=== PATIENT | male | born 1945 | race Caucasian/White ===

== ENCOUNTER → 2018-11-14 | Outpatient (CLI) | payer OTHER ==
[~2018-11-14] MED LIST: ALLO300T PO; ATOR10TA9 PO; EMPA25TA PO; LOSA100T14 PO; METF500T17 PO; TAMS-11 PO
[2018-11-14 10:51] LABS: MICROSCOPIC NOT IND
[2018-11-14 10:59] LABS: CULTURE INDICATED? NO
== END | disposition home or self-care (01) ==
LOC: STAR 09:27
PROVIDERS: ATTEND Orthopaedic Surgery
DX: Z01.818 Encounter for other preprocedural examination (principal); M17.12 Unilateral primary osteoarthritis, left knee; I45.10 Unspecified right bundle-branch block; R94.31 Abnormal electrocardiogram [ECG] [EKG]
CPT/HCPCS: 81003; 87081; 87147; 93005

== ENCOUNTER 2018-11-26 06:43 | Day surgery (SDC) | payer OTHER ==
[~2018-11-26] VITALS: Ht 170.2 cm; Wt 91.2 kg
[2018-11-26] MEDS ORDERED: VANCOMYCIN PER PHARMACY MC SCH (07:46)
[2018-11-26] MEDS ORDERED: LACTATED RINGERS 1,000 ML IV SCH (07:46)
[2018-11-26 07:51] VITALS: BP 150/81
[2018-11-26] MEDS ORDERED: VANCOMYCIN 1,800 MG in SODIUM CHLORIDE 0.9% 250 ML IV ONE (08:00)
[2018-11-26] MEDS ORDERED: MIDAZOLAM 1 MG/ML, 2ML ONE (08:13)
[2018-11-26] MEDS ORDERED: SUCCINYLCHOLINE 20 MG/ML, 10ML ONE (08:14)
[2018-11-26] MEDS ORDERED: EPHEDRINE 50 MG/ML, 1ML ONE (08:14)
[2018-11-26] MEDS ORDERED: PROPOFOL 10 MG/ML, 20ML ONE ×2 (08:14)
[2018-11-26] MEDS ORDERED: CEFAZOLIN 1,000 MG ONE ×2 (08:14)
[2018-11-26] MEDS ORDERED: FENTANYL PF 250 MCG/5ML ONE (08:14)
[2018-11-26] MEDS ORDERED: PHENYLEPHRINE 10 MG/ML ONE (08:15)
[2018-11-26] MEDS ORDERED: ROPIvacaine/PF 0.5%, 30 ML ONE (08:23)
[2018-11-26] MEDS ORDERED: GABAPENTIN 300 MG CAPSULE PO ONE (08:30)
[2018-11-26] MEDS ORDERED: OXYcodone IR 5MG TABLET PO ONE (08:30)
[2018-11-26] MEDS ORDERED: ACETAMINOPHEN 500 MG TABLET PO ONE (08:30)
[2018-11-26] MEDS ORDERED: TAMSULOSIN 0.4 MG CAP.ER.24H PO ONE (08:30)
[2018-11-26] MEDS ORDERED: KETOROLAC 60 MG/2 ML ONE (09:18)
[2018-11-26] MEDS ORDERED: TRANEXAMIC ACID 100 MG/ML, 10ML ONE ×2 (09:18)
[2018-11-26] MEDS ORDERED: VANCOMYCIN 1,000 MG ONE (09:19)
[2018-11-26] MEDS ORDERED: SODIUM CHLORIDE 0.9% 50 ML ONE (09:19)
[2018-11-26] MEDS ORDERED: EPINEPHRINE 1 MG/ML, 1ML ONE (09:19)
[2018-11-26] MEDS ORDERED: ROPIvacaine/PF 0.2%, 20 ML ONE (09:19)
[2018-11-26] MEDS ORDERED: GLYCOPYRROLATE 0.4 MG/2 ML, 2ML ONE (09:45)
[2018-11-26] MEDS ORDERED: MORPHINE SULFATE 4 MG/ML, 1ML ONE (10:40)
[2018-11-26] MEDS ORDERED: FENTANYL PF 100 MCG/2ML ONE (11:51)
[2018-11-26] MEDS ORDERED: OXYcodone 5 MG/5 ML ORAL.SOL UDC ONE (11:52)
[2018-11-26] MEDS ORDERED: MEPERIDINE/PF 25MG/0.5ML IVPush PRN (12:30)
[2018-11-26] MEDS ORDERED: FENTANYL PF 100 MCG/2ML IV PRN (12:30)
[2018-11-26] MEDS ORDERED: PROMETHAZINE 25 MG/ML, 1ML IV PRN (12:30)
[2018-11-26] MEDS ORDERED: OXYcodone 5 MG/5 ML ORAL.SOL UDC PO PRN (12:30)
[2018-11-26] MEDS ORDERED: hydrALAzine 20 MG/ML, 1ML IV PRN (12:30)
[2018-11-26] MEDS ORDERED: HYDROmorphone 2 MG/ML, 1ML IVPush PRN (12:30)
[2018-11-26] MEDS ORDERED: LABETALOL 5MG/ML, 20ML IV PRN (12:30)
[2018-11-26] MEDS ORDERED: TRANEXAMIC ACID 1,500 MG in SODIUM CHLORIDE 0.9% 100 ML IV ONE (12:30)
[2018-11-26] MEDS ORDERED: MIDAZOLAM 1 MG/ML, 2ML IV PRN (12:30)
[2018-11-26 13:15] VITALS: BP 149/80
[2018-11-26] MEDS ORDERED: LORazepam 2 MG/ML, 1ML IV PRN (14:00)
[2018-11-26] MEDS ORDERED: ONDANSETRON ODT 4 MG PO PRN ×2 (14:00→18:00)
[2018-11-26] MEDS ORDERED: ACETAMINOPHEN 325 MG TABLET PO PRN (14:00)
[2018-11-26] MEDS ORDERED: SENNA/DOCUSATE TABLET PO PRN (14:00)
[2018-11-26] MEDS ORDERED: DIPHENHYDRAMINE 25 MG CAPSULE PO PRN (14:00)
[2018-11-26] MEDS ORDERED: ZOLPIDEM 5MG TABLET PO PRN (14:00)
[2018-11-26] MEDS ORDERED: HYDROcodone/APAP 5/325 TABLET PO PRN (14:00)
[2018-11-26] MEDS ORDERED: ONDANSETRON 2MG/ML, 2ML IVPush PRN ×2 (14:00→18:00)
[2018-11-26] MEDS ORDERED: ALUMINUM/MAG/SIMETHICONE 30 ML UDC PO PRN (14:00)
[2018-11-26] MEDS ORDERED: BISACODYL 10 MG SUPP PR PRN (14:00)
[2018-11-26] MEDS ORDERED: PROMETHAZINE 25 MG SUPP PR PRN (14:00)
[2018-11-26] MEDS ORDERED: DIAZEPAM 5 MG TABLET PO PRN (14:00)
[2018-11-26] MEDS ORDERED: MAGNESIUM HYDROXIDE 8%, 30ML UDC PO PRN (14:00)
[2018-11-26] MEDS ORDERED: HYDROmorphone 1 MG/ML, 1ML INJ IV PRN (14:00)
[2018-11-26] MEDS ORDERED: LORazepam 1MG TABLET PO PRN (14:00)
[2018-11-26] MEDS ORDERED: PROMETHAZINE 25 MG/ML, 1ML IM PRN (14:00)
[2018-11-26] MEDS ORDERED: CEFAZOLIN PMX 2GM/50ML 50 ML IVPB SCH (16:00)
[2018-11-26] MEDS: D5%-0.45% NACL 1,000 ML IV SCH (18:07)
[2018-11-26] MEDS: ASPIRIN 81 MG TABLET EC PO SCH (18:07)
[2018-11-26] MEDS: CEFAZOLIN PMX 2GM/50ML 50 ML IVPB SCH (18:08)
[2018-11-26 20:18] VITALS: BP 128/70
[2018-11-26] MEDS: SODIUM CHLORIDE FLUSH 10ML SYR IVF SCH (21:00)
[2018-11-26] MEDS ORDERED: metFORMIN 500 MG TABLET PO SCH (21:00)
[2018-11-26] MEDS ORDERED: ATORVASTATIN 10 MG TABLET PO SCH (21:00)
[2018-11-26] MEDS: DOCUSATE 100 MG CAPSULE PO SCH (21:05)
[2018-11-26] MEDS: TAMSULOSIN 0.4 MG CAP.ER.24H PO SCH (21:06)
[2018-11-27] MEDS: OXYcodone IR 5MG TABLET PO PRN ×2 (00:22→04:31)
[2018-11-27 00:38] VITALS: BP 133/75
[2018-11-27] MEDS: CEFAZOLIN PMX 2GM/50ML 50 ML IVPB SCH (02:46)
[2018-11-27] MEDS: D5%-0.45% NACL 1,000 ML IV SCH (04:00)
[2018-11-27 04:11] VITALS: BP 125/76
[2018-11-27] MEDS ORDERED: SODIUM CHLORIDE 0.9% IV ONE (06:00)
[2018-11-27] MEDS ORDERED: DEXAMETHASONE IV ONE (06:00)
[2018-11-27] MEDS: ASPIRIN 81 MG TABLET EC PO SCH (06:01)
[2018-11-27 08:12] VITALS: BP 127/70
[2018-11-27] MEDS ORDERED: OXYC5TAB3 PO (08:36)
[2018-11-27] MEDS: TAMSULOSIN 0.4 MG CAP.ER.24H PO SCH (08:55)
[2018-11-27] MEDS: DOCUSATE 100 MG CAPSULE PO SCH (08:56)
[2018-11-27] MEDS: SODIUM CHLORIDE FLUSH 10ML SYR IVF SCH (08:56)
[2018-11-27] MEDS ORDERED: LOSARTAN 50MG TABLET PO SCH (09:00)
[2018-11-27] MEDS ORDERED: MULTIVITAMINS/MINERALS TABLET PO SCH (09:00)
[2018-11-27] MEDS ORDERED: LINAGLIPTIN 5 MG TAB PO SCH (09:00)
[2018-11-27] MEDS ORDERED: JARDIANCE 25 MG HOMEMEDPO SCH (09:00)
[2018-11-27] MEDS ORDERED: ALLOPURINOL 100 MG TABLET PO SCH (09:00)
[2018-11-27] MEDS ORDERED: metFORMIN 500 MG TABLET PO SCH (09:00)
[2018-11-27] MEDS ORDERED: KETOROLAC 30 MG/1 ML IV SCH (14:00)
== END 2018-11-27 10:00 | disposition home or self-care (01) ==
LOC: OUT 06:43 → 4NOR 12:59 → UNDOADMIN 13:08 → OUT 13:23 → 4NOR 11-27 09:55 → DCLOUNGE 11-27 09:55 → UNDODISIN 11-27 10:00 → OUT 11-27 10:00
PROVIDERS: ATTEND Orthopaedic Surgery
DX: M17.12 Unilateral primary osteoarthritis, left knee (principal); E11.9 Type 2 diabetes mellitus without complications; E78.5 Hyperlipidemia, unspecified; I10 Essential (primary) hypertension; M21.162 Varus deformity, not elsewhere classified, left knee; N40.0 Benign prostatic hyperplasia without lower urinary tract symptoms; M10.9 Gout, unspecified; K21.9 Gastro-esophageal reflux disease without esophagitis; Z72.89 Other problems related to lifestyle; Z79.84 Long term (current) use of oral hypoglycemic drugs
CPT/HCPCS: 27447; 36415; 64447; 73564; 82962; 85014; 85018; 97110; 97161; 97166; C1713; C1776; J0171; J0330; J0690; J1100; J1885; J2370; J2704; J2795; J3010; J3370; J7050; J7120; G0378; J2250